=== PATIENT | female | born 2005 | race Caucasian/White ===

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

== ENCOUNTER 2023-09-23 12:05 | Emergency (ER) | payer OTHER ==
[~2023-09-23] VITALS: Ht 154.9 cm; Wt 92.5 kg
[~2023-09-23 12:05] MED LIST: CEPH500C16 PO; IBUP-2213 PO
[2023-09-23 12:12] VITALS: BP 111/79; PULSE 98; RESP 18; TEMP 98.4; O2SAT 98
[2023-09-23] MEDS ORDERED: AMOX500C25 PO (13:25)
[2023-09-23] MEDS ORDERED: IBUP-1842 PO (13:25)
[2023-09-23] MEDS ORDERED: BENZ-300 PO (13:26)
[2023-09-23 13:28] VITALS: BP 111/78; PULSE 98; RESP 18; TEMP 98.4; O2SAT 98
[2023-09-23] MEDS: KETOROLAC 30 MG/ML VIAL IM ONE (13:44)
[2023-09-23 14:05] LABS: FLU A ANTIGEN negative (NEGATIVE); FLU B ANTIGEN negative (NEGATIVE)
== END 2023-09-23 13:28 | disposition home or self-care (01) ==
LOC: MED 12:05
DX: H66.92 Otitis media, unspecified, left ear (principal); Z20.822 Contact with and (suspected) exposure to COVID-19; Z79.899 Other long term (current) drug therapy
CPT/HCPCS: 81002; 81025; 87081; 87426; 87804; 96372; 99283; J1885